=== PATIENT | female | born 1990 | race African-American/Black ===

== ENCOUNTER 2018-01-05 12:28 | Emergency (ER) | payer SELFPAY ==
[~2018-01-05] VITALS: Ht 160 cm; Wt 67.0 kg
[2018-01-05 12:33] VITALS: BP 125/90
== END 2018-01-05 19:35 | disposition left against medical advice (07) ==
LOC: ER 14:35
DX: N64.4 Mastodynia (principal); Z53.21 Procedure and treatment not carried out due to patient leaving prior to being seen by health care provider